=== PATIENT | female | born 1985 | race Caucasian/White ===

== ENCOUNTER 2017-06-19 18:07 | Emergency (ER) | payer SELFPAY ==
[~2017-06-19] VITALS: Ht 167.6 cm; Wt 79.4 kg
[2017-06-19 18:14] VITALS: Ht 167.6 cm; Wt 79.4 kg
[2017-06-19 19:13] VITALS: BP 134/79
== END 2017-06-19 19:13 | disposition home or self-care (01) ==
LOC: ED 18:07
DX: F10.129 Alcohol abuse with intoxication, unspecified (principal)

== ENCOUNTER 2017-07-12 19:17 | Inpatient (IN) | payer SELFPAY ==
[~2017-07-12] VITALS: Ht 170.2 cm; Wt 82.3 kg
[2017-07-12 20:45] LABS: PLATELET COUNT 192 x10^3mcL (130-400); RED CELL DISTRIBUTION WIDTH 12.7 % (11.5-14.5)
[2017-07-12 20:47] LABS: BASOPHIL % 0 % (0-2)
[2017-07-12 20:53] LABS: CALCIUM 8.7 mg/dL (8.5-10.1); CARBON DIOXIDE 27.7 mmol/L (21-32); CHLORIDE SERUM 99 mmol/L (98-107); CREATININE SERUM 0.8 mg/dL (0.6-1.0); GFR1 > 60 mL/min; GLUCOSE SERUM 138 mg/dL (74-106); POTASSIUM SERUM 3.7 mmol/L (3.5-5.1); SODIUM SERUM 134 mmol/L (136-145)
[2017-07-12 20:57] LABS: ALKALINE PHOSPHATASE 136 U/L (46-116); ALT/SGPT 63 U/L (14-59); AST/SGOT 61 U/L (15-37); BILIRUBIN TOTAL 0.4 mg/dL (0.20-1.00); LIPASE 178 IU/L (73-393); TOTAL PROTEIN, SERUM 7.2 g/dL (6.4-8.2)
[2017-07-12 20:58] LABS: ALBUMIN 2.8 g/dL (3.4-5.0)
[2017-07-13 04:46] VITALS: BP 125/68
[2017-07-13 07:03] LABS: FREE T4 1.1 ng/dL (0.76-1.46); FREE THYROXINE INDEX 2.6 ug/dL (1.4-4.5); T4(THYROXINE) 7.5 ug/dL (4.7-13.3)
[2017-07-13 07:29] LABS: CHOLESTEROL/HDL RATIO 5.7; MAGNESIUM 1.9 mg/dL (1.8-2.4)
[2017-07-13 08:39] VITALS: BP 121/73
[2017-07-13 09:03] LABS: T3 TOTAL 1.14 ng/mL
[2017-07-13 09:25] LABS: BASOPHIL % 0.2 % (0-2); PLATELET COUNT 193 x10^3mcL (130-400)
[2017-07-13 09:32] LABS: CALCIUM 8.3 mg/dL (8.5-10.1); CARBON DIOXIDE 23.6 mmol/L (21-32); CHLORIDE SERUM 104 mmol/L (98-107); CREATININE SERUM 0.6 mg/dL (0.6-1.0); GFR1 > 60 mL/min; GLUCOSE SERUM 117 mg/dL (74-106); POTASSIUM SERUM 3.6 mmol/L (3.5-5.1); SODIUM SERUM 135 mmol/L (136-145)
[2017-07-13 13:44] VITALS: BP 151/71
[2017-07-13 15:19] LABS: microscopic required? YES; urine erythrocyte 1+ (NEGATIVE)
[2017-07-13 15:55] LABS: AMPHETAMINE QUAL UR POSITIVE (NEG <=1000)
[2017-07-13 17:23] VITALS: BP 119/77
[2017-07-13 21:02] VITALS: BP 127/52
[2017-07-14 05:50] VITALS: BP 132/78
[2017-07-14 06:43] LABS: CALCIUM 8.5 mg/dL (8.5-10.1); CHLORIDE SERUM 102 mmol/L (98-107); CREATININE SERUM 0.6 mg/dL (0.6-1.0); GFR1 > 60 mL/min; GLUCOSE SERUM 114 mg/dL (74-106); PHOSPHOROUS 3.6 mg/dL (2.5-4.9); POTASSIUM SERUM 3.9 mmol/L (3.5-5.1); SODIUM SERUM 136 mmol/L (136-145)
[2017-07-14 07:57] LABS: BASOPHIL % 0.3 % (0-2); PLATELET COUNT 214 x10^3mcL (130-400); RED CELL DISTRIBUTION WIDTH 13.1 % (11.5-14.5)
[2017-07-14] MEDS ORDERED: LAC PO (08:39)
[2017-07-14 09:09] VITALS: BP 102/69
[2017-07-14 13:33] VITALS: BP 105/68
[2017-07-14] MEDS ORDERED: CIPROFLOXACIN500 MG PO (14:24)
== END 2017-07-14 15:12 | disposition home or self-care (01) | DRG 871 ==
LOC: ED 19:17 → DU 07-13 03:59
PROVIDERS: Emergency Medicine; Family Medicine
DX: A41.9 Sepsis, unspecified organism (principal); E43 Unspecified severe protein-calorie malnutrition; N17.0 Acute kidney failure with tubular necrosis; N12 Tubulo-interstitial nephritis, not specified as acute or chronic; E87.1 Hypo-osmolality and hyponatremia; F10.10 Alcohol abuse, uncomplicated; Y90.9 Presence of alcohol in blood, level not specified; N28.89 Other specified disorders of kidney and ureter; J06.0 Acute laryngopharyngitis; R31.9 Hematuria, unspecified; E83.51 Hypocalcemia; Z68.28 Body mass index [BMI] 28.0-28.9, adult
CPT/HCPCS: 83880; 84439; 90658; 90732; G0480; J0696; J1200; J1885; J7030; J7040; Q0092; Q9967

== ENCOUNTER 2018-05-11 16:19 | Inpatient (IN) | payer MEDICAID ==
[~2018-05-11] VITALS: Ht 165.1 cm; Wt 80.8 kg
[~2018-05-11 16:19] MED LIST: CIPROFLOXACIN500 MG PO; LAC PO
[2018-05-11 16:32] VITALS: Ht 165.1 cm; Wt 80.8 kg
[2018-05-11 17:14] LABS: BASOPHIL % 0.2 % (0-2); PLATELET COUNT 229 x10^3mcL (130-400); RED CELL DISTRIBUTION WIDTH 12.4 % (11.5-14.5)
[2018-05-11 17:15] LABS: UA SPECIFIC GRAVITY >=1.030 (1.005-1.035); microscopic required? YES; urine erythrocyte TRACE (NEGATIVE)
[2018-05-11 17:30] LABS: CALCIUM 8.2 mg/dL (8.5-10.1); CARBON DIOXIDE 25.5 mmol/L (21-32); CHLORIDE SERUM 107 mmol/L (98-107); CREATININE SERUM 0.7 mg/dL (0.6-1.0); GFR1 > 60 mL/min; GLUCOSE SERUM 120 mg/dL (74-106); POTASSIUM SERUM 3.1 mmol/L (3.5-5.1); SODIUM SERUM 141 mmol/L (136-145)
[2018-05-11 17:34] LABS: ALBUMIN 3.5 g/dL (3.4-5.0); ALKALINE PHOSPHATASE 75 U/L (46-116); ALT/SGPT 20 U/L (14-59); AST/SGOT 19 U/L (15-37); BILIRUBIN TOTAL 0.2 mg/dL (0.20-1.00); TOTAL PROTEIN, SERUM 7.4 g/dL (6.4-8.2)
[2018-05-11 17:39] LABS: AMPHETAMINE QUAL UR POSITIVE (See below)
[2018-05-12 16:09] LABS: MAGNESIUM 2.1 mg/dL (1.8-2.4); PHOSPHOROUS 3.5 mg/dL (2.5-4.9)
[2018-05-12 16:17] LABS: CHOLESTEROL/HDL RATIO 2.4
[2018-05-12 21:01] VITALS: BP 118/75
[2018-05-12 22:26] VITALS: BP 111/66
[2018-05-13 06:13] VITALS: BP 117/73
[2018-05-13 07:07] LABS: CALCIUM 7.7 mg/dL (8.5-10.1); CARBON DIOXIDE 26.7 mmol/L (21-32); CHLORIDE SERUM 107 mmol/L (98-107); CREATININE SERUM 0.6 mg/dL (0.6-1.0); GFR1 > 60 mL/min; GLUCOSE SERUM 100 mg/dL (74-106); SODIUM SERUM 140 mmol/L (136-145)
[2018-05-13 07:32] LABS: BASOPHIL % 0.3 % (0-2); PLATELET COUNT 184 x10^3mcL (130-400); RED CELL DISTRIBUTION WIDTH 12.8 % (11.5-14.5)
[2018-05-13 10:11] VITALS: BP 103/61
[2018-05-13 17:00] VITALS: BP 119/72
[2018-05-13 20:47] VITALS: BP 112/67
[2018-05-14 05:32] VITALS: BP 109/65
[2018-05-14 12:10] VITALS: BP 118/60
[2018-05-14 17:12] VITALS: BP 105/45
[2018-05-14 20:44] VITALS: BP 133/61
[2018-05-15 06:17] VITALS: BP 102/69
[2018-05-15 07:17] LABS: CALCIUM 8.4 mg/dL (8.5-10.1); CARBON DIOXIDE 28.6 mmol/L (21-32); CHLORIDE SERUM 105 mmol/L (98-107); CREATININE SERUM 0.6 mg/dL (0.6-1.0); GFR1 > 60 mL/min; GLUCOSE SERUM 94 mg/dL (74-106); MAGNESIUM 2.1 mg/dL (1.8-2.4); PHOSPHOROUS 3.8 mg/dL (2.5-4.9); POTASSIUM SERUM 3.9 mmol/L (3.5-5.1); SODIUM SERUM 140 mmol/L (136-145)
[2018-05-15 07:46] VITALS: BP 95/47
[2018-05-15 09:44] LABS: BASOPHIL % 0.2 % (0-2); PLATELET COUNT 193 x10^3mcL (130-400); RED CELL DISTRIBUTION WIDTH 11.9 % (11.5-14.5)
[2018-05-16 04:49] VITALS: BP 108/61
[2018-05-16 06:47] LABS: CALCIUM 8.5 mg/dL (8.5-10.1); CARBON DIOXIDE 25.2 mmol/L (21-32); CHLORIDE SERUM 101 mmol/L (98-107); GFR1 > 60 mL/min; GLUCOSE SERUM 137 mg/dL (74-106); MAGNESIUM 1.9 mg/dL (1.8-2.4); PHOSPHOROUS 4.9 mg/dL (2.5-4.9); POTASSIUM SERUM 3.6 mmol/L (3.5-5.1); SODIUM SERUM 134 mmol/L (136-145)
[2018-05-16 07:25] LABS: BASOPHIL % 0.1 % (0-2); PLATELET COUNT 192 x10^3mcL (130-400); RED CELL DISTRIBUTION WIDTH 11.7 % (11.5-14.5)
[2018-05-16 08:18] VITALS: BP 102/54
[2018-05-16 14:20] VITALS: BP 102/54
== END 2018-05-16 16:23 | DRG 775 ==
LOC: ED 16:19 → MU 05-12 13:57 → DU 05-12 13:57 → MU 05-12 18:40 → DU 05-14 06:24
PROVIDERS: Emergency Medicine; ADMIT Internal Medicine
DX: F10.229 Alcohol dependence with intoxication, unspecified (principal); G92 Toxic encephalopathy; R45.851 Suicidal ideations; F10.239 Alcohol dependence with withdrawal, unspecified; F32.9 Major depressive disorder, single episode, unspecified; F15.10 Other stimulant abuse, uncomplicated; E87.1 Hypo-osmolality and hyponatremia; E87.6 Hypokalemia; Y90.0 Blood alcohol level of less than 20 mg/100 ml; Z66 Do not resuscitate; Z91.5 Personal history of self-harm; Z68.28 Body mass index [BMI] 28.0-28.9, adult
CPT/HCPCS: G0480; J2060; J3486; J7030

== ENCOUNTER 2020-02-06 18:17 | Emergency (ER) | payer MEDICAID ==
[~2020-02-06] VITALS: Ht 170.2 cm; Wt 109.8 kg
[2020-02-06 18:45] VITALS: BP 131/77; Ht 170.2 cm; Wt 109.8 kg
== END 2020-02-06 19:45 | disposition home or self-care (01) ==
LOC: ED 18:17
DX: H66.91 Otitis media, unspecified, right ear (principal)

== ENCOUNTER 2020-04-23 16:33 | Emergency (ER) | payer MEDICAID ==
[~2020-04-23] VITALS: Ht 170.2 cm; Wt 107.0 kg
[2020-04-23 16:56] VITALS: BP 145/56; Ht 170.2 cm; Wt 107.0 kg
== END 2020-04-23 17:53 | disposition home or self-care (01) ==
LOC: ED 16:33
DX: H60.501 Unspecified acute noninfective otitis externa, right ear (principal)

== ENCOUNTER 2020-05-08 17:58 | Emergency (ER) | payer MEDICAID ==
[~2020-05-08] VITALS: Ht 170.2 cm; Wt 108.9 kg
[2020-05-08 18:00] VITALS: Ht 170.2 cm; Wt 108.9 kg
[2020-05-08 19:46] VITALS: BP 121/61
== END 2020-05-08 19:46 | disposition home or self-care (01) ==
LOC: ED 17:58
DX: F10.129 Alcohol abuse with intoxication, unspecified (principal); S09.8XXA Other specified injuries of head, initial encounter; V49.59XA Passenger injured in collision with other motor vehicles in traffic accident, initial encounter; Y93.I9 Activity, other involving external motion; Y92.413 State road as the place of occurrence of the external cause; Y99.8 Other external cause status
CPT/HCPCS: G0480

== ENCOUNTER 2020-05-12 17:07 | Emergency (ER) | payer OTHER, MEDICAID ==
[~2020-05-12] VITALS: Ht 170.2 cm; Wt 106.6 kg
[2020-05-12 17:22] VITALS: Ht 170.2 cm; Wt 106.6 kg
[2020-05-12 19:22] VITALS: BP 146/88
== END 2020-05-12 19:22 | disposition home or self-care (01) ==
LOC: ED 17:07
DX: S22.41XD Multiple fractures of ribs, right side, subsequent encounter for fracture with routine healing (principal); F10.129 Alcohol abuse with intoxication, unspecified; V49.09XD Driver injured in collision with other motor vehicles in nontraffic accident, subsequent encounter
CPT/HCPCS: J1885